=== PATIENT | female | born 1985 | race Caucasian/White ===

== ENCOUNTER → 2017-08-02 16:14 | Outpatient (CLI) | payer OTHER ==
[~2017-08-02] VITALS: Ht 152.4 cm; Wt 106.1 kg
[~2017-08-02 16:14] MED LIST: CYMBALTA60 MG; ELAVIR PO; KETO10TA2 PO; NEURONTIN300 MG
== END | disposition home or self-care (01) ==
LOC: PPHC 16:14
DX: R10.11 Right upper quadrant pain (principal)

== ENCOUNTER → 2017-08-02 17:11 | Outpatient (CLI) | payer OTHER | END | disposition home or self-care (01) | LOC: LAB 17:11 | DX: R10.9 Unspecified abdominal pain (principal) ==

== ENCOUNTER → 2017-08-06 | Emergency (ER) | payer OTHER ==
[~2017-08-06] VITALS: Ht 170.2 cm; Wt 106.1 kg
== END | disposition home or self-care (01) ==
LOC: ER 21:40
DX: R10.31 Right lower quadrant pain (principal)

== ENCOUNTER 2017-08-08 03:22 | Emergency (ER) | payer OTHER ==
[~2017-08-08] VITALS: Ht 170.2 cm; Wt 106.1 kg
== END 2017-08-08 10:17 | disposition home or self-care (01) ==
LOC: ER 03:22
DX: K29.70 Gastritis, unspecified, without bleeding (principal); R10.84 Generalized abdominal pain

== ENCOUNTER 2017-08-10 10:46 | Outpatient (CLI) | payer OTHER | END 2017-08-10 12:40 | disposition home or self-care (01) | LOC: LAB 10:46 | DX: K80.10 Calculus of gallbladder with chronic cholecystitis without obstruction (principal) ==

== ENCOUNTER 2017-08-10 12:09 | Outpatient (CLI) | payer OTHER | END 2017-08-10 12:18 | disposition home or self-care (01) | LOC: RAD 12:09 | DX: K80.10 Calculus of gallbladder with chronic cholecystitis without obstruction (principal) ==

== ENCOUNTER 2018-04-23 00:10 | Emergency (ER) | payer OTHER ==
[~2018-04-23] VITALS: Ht 170.2 cm; Wt 109.8 kg
[2018-04-23] MEDS ORDERED: KETO10TA2 PO (10:33)
== END 2018-04-23 14:20 | disposition home or self-care (01) ==
LOC: ER 00:10
DX: N83.291 Other ovarian cyst, right side (principal)

== ENCOUNTER 2019-04-10 12:19 | Outpatient (CLI) | payer OTHER | END 2019-04-10 14:13 | disposition home or self-care (01) | LOC: LAB 12:19 | DX: J11.1 Influenza due to unidentified influenza virus with other respiratory manifestations (principal) ==

== ENCOUNTER 2019-05-23 13:02 | Outpatient (CLI) | payer OTHER | END 2019-05-23 13:14 | disposition home or self-care (01) | LOC: MAMO-SONO 13:02 | DX: Z12.31 Encounter for screening mammogram for malignant neoplasm of breast (principal); Z87.898 Personal history of other specified conditions; N64.4 Mastodynia ==

== ENCOUNTER 2019-05-26 15:38 | Emergency (ER) | payer OTHER ==
[~2019-05-26] VITALS: Ht 170.2 cm; Wt 117.9 kg
[2019-05-26] MEDS ORDERED: AMITRIPTYLINE H25 MG PO (15:59)
[2019-05-26] MEDS ORDERED: TENORMIN25 MG PO (15:59)
== END 2019-05-26 18:50 | disposition home or self-care (01) ==
LOC: ER 15:38 → CPU-OBS 17:01 → ER 17:01
DX: R07.89 Other chest pain (principal); I27.20 Pulmonary hypertension, unspecified; R01.1 Cardiac murmur, unspecified
CPT/HCPCS: G0378; G0379; 93005

== ENCOUNTER 2020-11-03 17:10 | Emergency (ER) | payer OTHER ==
[~2020-11-03] VITALS: Ht 170.2 cm; Wt 117.9 kg
[~2020-11-03 17:10] MED LIST changes: +AMITRIPTYLINE H25 MG PO; +TENORMIN25 MG PO
[2020-11-03] MEDS ORDERED: LOSARTAN POTASS25 MG (17:23)
[2020-11-03] MEDS ORDERED: RELAFEN DS1000 MG (17:25)
[2020-11-03] MEDS ORDERED: NORFLEC (17:25)
[2020-11-04] MEDS ORDERED: HORIZANT300 MG PO (12:48)
[2020-11-04] MEDS ORDERED: FOLIC ACID0.8 M1 PO (12:52)
[2020-11-04] MEDS ORDERED: VITAMIN B122500 MCG PO (12:52)
== END 2020-11-03 21:07 | disposition home or self-care (01) ==
LOC: ER 17:10
DX: I82.491 Acute embolism and thrombosis of other specified deep vein of right lower extremity (principal); M79.661 Pain in right lower leg

== ENCOUNTER 2020-11-04 07:19 | Emergency (ER) | payer OTHER ==
[~2020-11-04] VITALS: Ht 170.2 cm; Wt 117.9 kg
[~2020-11-04 07:19] MED LIST changes: +LOSARTAN POTASS25 MG; +NORFLEC; +RELAFEN DS1000 MG
[2020-11-04] MEDS ORDERED: HORIZANT300 MG PO (12:48)
[2020-11-04] MEDS ORDERED: FOLIC ACID0.8 M1 PO (12:52)
[2020-11-04] MEDS ORDERED: VITAMIN B122500 MCG PO (12:52)
== END 2020-11-04 13:46 | disposition home or self-care (01) ==
LOC: ER 07:19
DX: G57.81 Other specified mononeuropathies of right lower limb (principal); M79.661 Pain in right lower leg

== ENCOUNTER 2021-05-17 11:22 | Emergency (ER) | payer OTHER ==
[~2021-05-17] VITALS: Ht 170.2 cm; Wt 117.9 kg
[~2021-05-17 11:22] MED LIST changes: +FOLIC ACID0.8 M1 PO; +HORIZANT300 MG PO; +VITAMIN B122500 MCG PO
[2021-05-17] MEDS ORDERED: COZAAR100 MG PO (12:31)
== END 2021-05-17 14:38 | disposition home or self-care (01) ==
LOC: ER 11:22
DX: M54.2 Cervicalgia (principal)

== ENCOUNTER 2021-07-19 13:17 | Emergency (ER) | payer OTHER ==
[~2021-07-19] VITALS: Ht 170.2 cm; Wt 117.9 kg
[~2021-07-19 13:17] MED LIST changes: +COZAAR100 MG PO
== END 2021-07-19 22:15 | disposition home or self-care (01) ==
LOC: ER 13:17
DX: R10.32 Left lower quadrant pain (principal); Z20.822 Contact with and (suspected) exposure to COVID-19

== ENCOUNTER → 2022-11-17 | Emergency (ER) | payer OTHER ==
[~2022-11-17] VITALS: Ht 170.2 cm; Wt 113.4 kg
[~2022-11-17] MED LIST changes: +PANTOPRAZOLE SO40 M2 PO; +PEPCID AC20 MG
== END | disposition home or self-care (01) ==
LOC: ER 10:52
DX: R07.9 Chest pain, unspecified (principal); M94.0 Chondrocostal junction syndrome [Tietze]; Z91.013 Allergy to seafood; N39.0 Urinary tract infection, site not specified

== ENCOUNTER 2024-05-19 04:42 | Emergency (ER) | payer OTHER ==
[~2024-05-19] VITALS: Ht 172.7 cm; Wt 117.9 kg
[2024-05-19] MEDS ORDERED: KETOROLAC TROMETHAMINE 30 MG VIAL IM STA (08:44)
[2024-05-19] MEDS ORDERED: ORPHENADRINE CITRATE 30 MG/ML AMPUL IM STA (08:45)
== END 2024-05-19 08:57 | disposition home or self-care (01) ==
LOC: ER 04:44
DX: M54.2 Cervicalgia (principal); Z91.013 Allergy to seafood
CPT/HCPCS: 96372; 99282; J1885; J2360

== ENCOUNTER 2024-08-19 16:35 | Emergency (ER) | payer OTHER ==
[~2024-08-19] VITALS: Ht 170.2 cm; Wt 107.0 kg
[2024-08-19] MEDS ORDERED: COZAAR50 MG PO (16:52)
[2024-08-19] MEDS ORDERED: MORPHINE SULFATE 4 MG/ML VIAL IV ONE (22:00)
[2024-08-19 22:27] LABS: ALBUMIN 3.7 gm/dL (3.4-5.0); BILIRUBIN TOTAL 0.29 mg/dL (0.3-1.2); CALCIUM 9.5 mg/dL (8.5-10.1); CREATININE SERUM 0.68 mg/dL (0.55-1.02); GFR 95.35; GLOBULINA 3.8 G/DL (2.4-3.5); POTASSIUM 3.88 mEq/L (3.5-5.1); TOTAL PROTEIN 7.5 gm/dL (6.4-8.2)
[2024-08-19] MEDS ORDERED: KETOROLAC TROMETHAMINE 60 MG VIAL IM ONE ×2 (23:00→23:15)
[2024-08-20] MEDS ORDERED: LACTOBACILLUS ACIDOPHILUS 1 CAP CAP PO STA (02:39)
[2024-08-20] MEDS ORDERED: HYOSCYAMINE SULFATE 0.125 MG TAB.SUBL SL STA (02:39)
[2024-08-20] MEDS ORDERED: LACTOBACILLUS ACIDOPHILUS 1 CAP CAP PO ONE (02:41)
[2024-08-20] MEDS ORDERED: HYOSCYAMINE SULFATE 0.125 MG TAB.SUBL ONE (02:41)
[2024-08-20] MEDS ORDERED: INTESTINEX680 M2 PO (02:49)
[2024-08-20] MEDS ORDERED: PHAZYME180 MG PO (02:49)
[2024-08-20] MEDS ORDERED: LEVSIN/SL0.125 MG SL (02:49)
== END 2024-08-20 03:05 ==
LOC: ER 16:37
PROVIDERS: Preventive Medicine Public Health & General Preventive Medicine
DX: R14.0 Abdominal distension (gaseous) (principal); R10.9 Unspecified abdominal pain; Z91.013 Allergy to seafood
CPT/HCPCS: 36415; 74177; Q9965